=== PATIENT | female | born 1940 | race Caucasian/White ===

== ENCOUNTER 2021-06-26 11:58 | Emergency (ER) | payer MEDICARE, OTHER ==
[~2021-06-26] VITALS: Ht 170.2 cm; Wt 84.0 kg
[~2021-06-26 11:58] MED LIST: ALEVE220 M1 OR; AMOXICILLIN875 MG OR; CIPRO500 MG PO; CYCLOBENZAPR10 MG PO; FLAGYL500 MG OR; FLEXERIL5 MG PO; NAPROSYN500 MG PO; NAPROXEN EC500 MG OR; NAPROXEN500 MG PO; TESSALON PER100 MG PO; TRAZODONE50 MG PO; ZOFRAN ODT4 MG OR
[2021-06-26] MEDS ORDERED: CYCLOBENZAPRINE10 MG PO (12:21)
[2021-06-26] MEDS ORDERED: CITALOPRAM20 M1 PO (12:22)
[2021-06-26] MEDS ORDERED: LISINOPRIL20 MG PO (12:22)
[2021-06-26] MEDS ORDERED: CRESTOR20 MG PO (12:24)
[2021-06-26 12:25] LABS: HEMATOCRIT 32.9 % (37.0-47.0); HEMOGLOBIN 10.7 g/dl (12.0-16.0); IMMATURE GRANULOCYTES 0.3 % (0.0-5.0); MEAN CELL VOLUME 91.1 fL CALC (80.0-100.0); MEAN CORPUSCULAR HGB 29.6 pG CALC (26.0-32.0); MEAN CORPUSCULAR HGB CONC 32.5 g/dL CAL (32.0-36.0); NEUT# 3.95 thou/uL (2.00-7.15); RED BLOOD COUNT 3.61 mill/uL (4.20-5.60); RED CELL DISTRI WIDTH 12.9 % (11.5-15.5)
[2021-06-26 12:35] LABS: BILIRUBIN, TOTAL 0.5 mg/dL (0.0-1.4); CREATININE 1.3 mg/dL (0.5-1.0); POTASSIUM 4.5 mmol/l (3.5-5.1); TOTAL PROTEIN 6.8 g/dL (6.3-8.2)
[2021-06-26] MEDS ORDERED: HYDROCO/APAP1 TA9 PO (13:49)
[2021-06-26 13:59] LABS: URINE BILIRUBIN - DIPSTICK NEGATIVE (NEGATIVE); URINE BLOOD DIPSTICK NEGATIVE (NEGATIVE); URINE COLOR YELLOW; URINE GLUCOSE - DIPSTICK NEGATIVE (NEGATIVE); URINE KETONE NEGATIVE (NEGATIVE); URINE PH 5.5 (4.5-8.0); URINE PROTEIN - DIPSTICK NEGATIVE (NEG-TRACE); URINE UROBILINOGEN - DIPSTICK 0.2 E.U./dL (0.2)
[2021-06-26 14:02] LABS: URINE LEUK ESTERASE SMALL (NEGATIVE); URINE NITRITE - DIPSTICK POSITIVE (Negative)
[2021-06-26 14:07] LABS: URINE BACTERIA MANY hpf; URINE RBC 0-2 RBC/hpf (0-5); URINE SQUAMOUS EPITHELIAL CELL FEW EPI/hpf (0-FEW); URINE WBC 20-50 WBC/hpf (0-5)
[2021-06-26 15:25] LABS: HEMATOCRIT 32.2 % (37.0-47.0); HEMOGLOBIN 10.3 g/dl (12.0-16.0)
[2021-06-26 15:48] LABS: ACT PARTIAL THROMBO TIME 22.8 SECONDS (20.0-32.5); INTERNATIONAL NORMALIZED RATIO 1.1 RATIO (0.7-1.3)
[2021-06-26 18:55] VITALS: BP 102/63
== END 2021-06-26 18:55 | disposition short-term general hospital (02) ==
LOC: ED 11:58
PROC: 2W38X1Z Immobilization of Right Upper Extremity using Splint (ICD-10-PCS; principal; 2021-06-26)
PROC: 0T9B70Z Drainage of Bladder with Drainage Device, Via Natural or Artificial Opening (ICD-10-PCS; 2021-06-26)
DX: S42.201A Unspecified fracture of upper end of right humerus, initial encounter for closed fracture (principal); I95.9 Hypotension, unspecified; R82.71 Bacteriuria; I10 Essential (primary) hypertension; W01.0XXA Fall on same level from slipping, tripping and stumbling without subsequent striking against object, initial encounter; Y92.008 Other place in unspecified non-institutional (private) residence as the place of occurrence of the external cause

== ENCOUNTER 2022-07-31 08:15 | Emergency (ER) | payer MEDICARE, OTHER ==
[~2022-07-31] VITALS: Ht 170.2 cm; Wt 70.3 kg
[~2022-07-31 08:15] MED LIST changes: +CITALOPRAM20 M1 PO; +CRESTOR20 MG PO; +CYCLOBENZAPRINE10 MG PO; +HYDROCO/APAP1 TA9 PO; +LISINOPRIL20 MG PO
[2022-07-31 08:25] VITALS: BP 176/95
[2022-07-31 08:30] VITALS: BP 152/108
[2022-07-31 08:45] VITALS: BP 166/83
[2022-07-31 08:45] LABS: IMMATURE GRANULOCYTES 0.2 % (0.0-5.0); MEAN CELL VOLUME 92.2 fL CALC (80.0-100.0); MEAN CORPUSCULAR HGB 30.1 pG CALC (26.0-32.0); MEAN CORPUSCULAR HGB CONC 32.7 g/dL CAL (32.0-36.0); NEUT# 8.14 thou/uL (2.00-7.15); RED BLOOD COUNT 4.35 mill/uL (4.20-5.60); RED CELL DISTRI WIDTH 12.1 % (11.5-15.5)
[2022-07-31 08:49] LABS: HEMATOCRIT 40.1 % (37.0-47.0); HEMOGLOBIN 13.1 g/dl (12.0-16.0)
[2022-07-31 09:01] VITALS: BP 141/67
[2022-07-31 09:02] LABS: URINE BILIRUBIN - DIPSTICK NEGATIVE (NEGATIVE); URINE BLOOD DIPSTICK TRACE-INTACT (NEGATIVE); URINE COLOR YELLOW; URINE GLUCOSE - DIPSTICK NEGATIVE (NEGATIVE); URINE KETONE NEGATIVE (NEGATIVE); URINE PROTEIN - DIPSTICK NEGATIVE (NEG-TRACE); URINE SPECIFIC GRAVITY >=1.030; URINE UROBILINOGEN - DIPSTICK 0.2 E.U./dL (0.2)
[2022-07-31 09:03] LABS: URINE LEUK ESTERASE SMALL (NEGATIVE); URINE NITRITE - DIPSTICK POSITIVE (Negative)
[2022-07-31 09:03] LABS: ALBUMIN 4.3 g/dL (3.2-5.0); BILIRUBIN, TOTAL 0.7 mg/dL (0.0-1.4); CREATININE 1.3 mg/dL (0.5-1.0); POTASSIUM 4.2 mmol/l (3.5-5.1); TOTAL PROTEIN 7.7 g/dL (6.3-8.2)
[2022-07-31 09:05] LABS: URINE BACTERIA FEW hpf; URINE RBC 0-2 RBC/hpf (0-5); URINE SQUAMOUS EPITHELIAL CELL MANY EPI/hpf (0-FEW); URINE WBC 20-50 WBC/hpf (0-5)
[2022-07-31 09:45] VITALS: BP 131/70
[2022-07-31 10:01] VITALS: BP 138/66
[2022-07-31] MEDS ORDERED: NITROFURANTN100 M2 PO (11:13)
--- NOTE | 2022-08-02 16:14 | NUR ---
Attempted to call the patient to do a wellness check for a recent visit. Patient was unavailable, left voicemail for patient to return call to pharmacy.
== END 2022-07-31 11:51 | disposition home or self-care (01) ==
LOC: ED 08:15
PROVIDERS: Family Medicine
DX: N39.0 Urinary tract infection, site not specified (principal); K82.8 Other specified diseases of gallbladder; I10 Essential (primary) hypertension; Z20.822 Contact with and (suspected) exposure to COVID-19
CPT/HCPCS: Q9967